=== PATIENT | female | born 1995 | race Hispanic/Latino ===

== ENCOUNTER 2019-10-03 05:59 | Observation (INO) | payer SELFPAY ==
[2019-10-03] VITALS (22 sets, daily range): BP systolic 94–125; BP diastolic 52–83
[2019-10-03] MEDS ORDERED: IOHEXOL-350 50ML VIAL IV ONE (08:49)
[2019-10-03] MEDS ORDERED: SUCCINYLCHOLINE 200MG/10ML SYR ONE (10:30)
[2019-10-03] MEDS ORDERED: PROPOFOL 10 MG/ML 20ML VIAL IV ONE (10:30)
[2019-10-03] MEDS: INDOMETHACIN 50 MG SUPP.RECT RC SCH (11:06)
[2019-10-03] MEDS ORDERED: MEPERIDINE-PF 25 MG/ML SYG ONE ×2 (11:30→12:02)
[2019-10-03] MEDS ORDERED: MORPHINE SULFATE 4 MG/1ML SYG ONE (11:40)
--- NOTE | 2019-10-03 12:00 | NUR ---
DR. PALMA TO SEE PT., IN REGARDS TO HER PAIN. ORDERS GIVEN FOR KUB, LIPASE AND CMP. Addendum: 10/03/19 at 1208 by DELON GUTIERREZ RN RN Amended: Links added.
[2019-10-03] MEDS ORDERED: ONDANSETRON HCL 4 MG/2 ML VIAL ONE (12:22)
[2019-10-03 12:52] LABS: CREATININE 0.6 mg/dL (0.5-1.5)
[2019-10-03 12:56] LABS: ALBUMIN 3.5 g/dL (3.5-5.0); BILIRUBIN,TOTAL 0.3 mg/dL (0.2-1.0); TOTAL PROTEIN, SERUM 7.3 g/dL (6.0-8.3)
== END 2019-10-03 13:40 | disposition home or self-care (01) ==
LOC: EDH 05:59 → DAH 06:00 → DAHIP 06:01 → DAH 06:01 → DAHIP 13:35
PROVIDERS: ADMIT Internal Medicine; ATTEND Internal Medicine
DX: K80.50 Calculus of bile duct without cholangitis or cholecystitis without obstruction (principal); T85.898A Other specified complication of other internal prosthetic devices, implants and grafts, initial encounter; F41.9 Anxiety disorder, unspecified; F32.9 Major depressive disorder, single episode, unspecified; D64.9 Anemia, unspecified; F43.10 Post-traumatic stress disorder, unspecified; Z90.49 Acquired absence of other specified parts of digestive tract; Z90.81 Acquired absence of spleen; X58.XXXA Exposure to other specified factors, initial encounter; Y92.89 Other specified places as the place of occurrence of the external cause
CPT/HCPCS: 36415; 43264; 43276; 74018; 74330; 80053; 81025; 83690; 99284; A4222; A4223; A4606; C1769; C1773; C2625; G0378 ×4; J0330; J2175 ×2; J2270; J2405; J2704; J7030; Q9967

== ENCOUNTER 2020-02-19 03:53 | Inpatient (IN) | payer SELFPAY ==
[~2020-02-19] VITALS: Ht 157.5 cm; Wt 72.1 kg
[2020-02-19 04:33] LABS: BASOPHILS % (AUTO) 0.6 % (0.0-5.0); EOSINOPHILS % (AUTO) 1.1 % (0.0-8.0); HEMATOCRIT 39.7 % (36-48); LYMPHOCYTES % (AUTO) 40.6 % (21.0-51.0); MEAN CORPUSCULAR HEMOGLOBIN 25.1 pg (27.0-33.0); MEAN CORPUSCULAR HGB CONC 32.2 g/dL (32.0-36.0); MONOCYTES % (AUTO) 9.2 % (3.0-13.0); NEUTROPHILS % (AUTO) 48.2 % (40.0-77.0); PLATELET COUNT (AUTO) 374 K/uL (130-400); RED BLOOD CELL COUNT(AUTO) 5.09 MIL/uL (4.00-5.50); RED CELL DISTRIBUTION WIDTH 13.4 % (11.0-15.5)
[2020-02-19 04:34] LABS: BILIRUBIN,URINE Negative (NEGATIVE); COLOR,URINE Yellow (YELLOW); GLUCOSE, URINE (UA) Negative (NEGATIVE); KETONES,URINE 40 mg/dL (NEGATIVE); LEUKOCYTE ESTERASE ,URINE Trace (NEGATIVE); NITRATE,URINE Negative (NEGATIVE); OCCULT BLOOD,URINE Negative (NEGATIVE); PROTEIN,URINE Negative (NEGATIVE)
[2020-02-19 04:36] LABS: HCG,QUAL RESULT NEGATIVE (NEGATIVE)
[2020-02-19 04:37] LABS: APPEARANCE,URINE SLIGHTLY CLOUDY (CLEAR)
[2020-02-19 04:46] LABS: BACTERIA,URINE Few /HPF (None Seen); RBC,URINE None Seen /HPF (0-1); WBC,URINE 0-1 /HPF (0-1)
[2020-02-19 04:47] LABS: MUCUS,URINE Rare LPF (None Seen)
[2020-02-19] MEDS ORDERED: KETOROLAC TROMETHAMINE 30MG/ML ONE (04:49)
[2020-02-19 05:00] LABS: INR 0.99 (0.85-1.15); PARTIAL THROMBOPLASTIN TIME 31.5 SEC (26.3-35.5); PROTHROMBIN TIME 10.7 SEC (9.6-11.6)
[2020-02-19 05:27] LABS: CREATININE 0.6 mg/dL (0.5-1.5); POTASSIUM 3.1 mmol/L (3.5-5.1)
[2020-02-19 05:36] LABS: ALBUMIN 4.2 g/dL (3.5-5.0); BILIRUBIN,TOTAL 0.3 mg/dL (0.2-1.0); TOTAL PROTEIN, SERUM 8.4 g/dL (6.0-8.3)
[2020-02-19] MEDS ORDERED: POTASSIUM CHLORIDE 20 MEQ ERTAB PO ONE ×2 (05:53)
[2020-02-19] MEDS ORDERED: ZOSYN 3.375GM+NS 50ML 50 ML IV ONE (05:54)
[2020-02-19] MEDS ORDERED: POTASSIUM CHLORIDE 10MEQ/100ML 100 ML IV PRN (07:45)
[2020-02-19] MEDS ORDERED: LIDOCAINE HCL-MPF 1% 2ML VIAL IV PRN (07:45)
[2020-02-19] MEDS ORDERED: ONDANSETRON HCL 4 MG/2 ML VIAL IVP PRN (07:45)
[2020-02-19] MEDS ORDERED: MORPHINE SULFATE 2 MG/ML 1ML SYG ONE (08:27)
[2020-02-19 09:00] VITALS: BP 115/71
[2020-02-19] MEDS: SODIUM CHLORIDE 0.9% 1000ML 1,000 ML IV SCH ×2 (10:56→21:14)
[2020-02-19 11:03] VITALS: BP 116/70
[2020-02-19] MEDS: KETOROLAC TROMETHAMINE 15MG/ML IV PRN ×2 (11:47→21:06)
[2020-02-19] MEDS: ZOSYN 3.375GM+NS 50ML 50 ML IV SCH ×2 (13:54→21:06)
[2020-02-19 15:29] VITALS: BP 119/56
[2020-02-19 19:00] VITALS: BP 116/79
[2020-02-19 23:00] VITALS: BP 127/63
[2020-02-19] MEDS: MORPHINE SULFATE 2 MG/ML 1ML SYG IVP PRN (23:31)
[2020-02-20] VITALS (20 sets, daily range): BP systolic 110–142; BP diastolic 51–89
[2020-02-20] MEDS: ZOSYN 3.375GM+NS 50ML 50 ML IV SCH ×3 (05:48→20:36)
[2020-02-20] MEDS: SODIUM CHLORIDE 0.9% 1000ML 1,000 ML IV SCH ×2 (05:48→14:48)
[2020-02-20] MEDS: KETOROLAC TROMETHAMINE 15MG/ML IV PRN (05:55)
[2020-02-20] MEDS ORDERED: IOHEXOL-350 50ML VIAL IV ONE (06:59)
[2020-02-20] MEDS: INDOMETHACIN 50 MG SUPP.RECT RC SCH ×2 (11:15→13:25)
[2020-02-20] MEDS ORDERED: NEOSTIGMINE 5MG/5ML SYR IV ONE (12:12)
[2020-02-20] MEDS ORDERED: PROPOFOL 10 MG/ML 20ML VIAL IV ONE (12:12)
[2020-02-20] MEDS ORDERED: ROCURONIUM 10MG/1ML SYR 10 MG/ML ML ONE (12:12)
[2020-02-20] MEDS ORDERED: GLYCOPYRROLATE 1 MG/5 ML SYRINGE ONE (12:12)
[2020-02-20] MEDS ORDERED: FENTANYL CITRATE PF 50 MCG/1 ML 2ML VIAL ONE (12:29)
--- NOTE | 2020-02-20 12:56 | NUR ---
GARIMA NOTE/IA MET WITH PATIENT IN ROOM. PER PATIENT, IS INDEPENDENT WITH ADLS, LIVES WITH GRANDMOTHER AND UNCLE, NO COMMUNITY SERVICES IN USE, NO DME IN USE AND FEELS SAFE TO RETURN HOME. Addendum: 02/20/20 at 1257 by CORINA GEORGES RN CM Amended: Links added.
[2020-02-20] MEDS ORDERED: IPRATROPIUM/ALBUTEROL SULFATE 3 ML SOLUTION IH ONE (13:38)
[2020-02-20] MEDS ORDERED: MEPERIDINE-PF 25 MG/ML SYG ONE (13:48)
[2020-02-20] MEDS: MORPHINE SULFATE 2 MG/ML 1ML SYG IVP PRN ×2 (17:41→22:16)
[2020-02-21 00:24] VITALS: BP 111/59
[2020-02-21] MEDS: MORPHINE SULFATE 2 MG/ML 1ML SYG IVP PRN (03:20)
[2020-02-21] MEDS: ZOSYN 3.375GM+NS 50ML 50 ML IV SCH ×2 (03:20→12:06)
[2020-02-21] MEDS: SODIUM CHLORIDE 0.9% 1000ML 1,000 ML IV SCH (03:21)
[2020-02-21 04:28] VITALS: BP 126/71
[2020-02-21 05:53] LABS: BASOPHILS % (AUTO) 0.5 % (0.0-5.0); EOSINOPHILS % (AUTO) 0.8 % (0.0-8.0); HEMATOCRIT 38.1 % (36-48); LYMPHOCYTES % (AUTO) 25.7 % (21.0-51.0); MEAN CORPUSCULAR HEMOGLOBIN 25.7 pg (27.0-33.0); MEAN CORPUSCULAR HGB CONC 31.8 g/dL (32.0-36.0); MEAN CORPUSCULAR VOLUME 80.9 fL (79-99); MONOCYTES % (AUTO) 9.4 % (3.0-13.0); NEUTROPHILS % (AUTO) 63.2 % (40.0-77.0); PLATELET COUNT (AUTO) 385 K/uL (130-400); RED BLOOD CELL COUNT(AUTO) 4.71 MIL/uL (4.00-5.50); WHITE BLOOD COUNT (AUTO) 15.9 K/uL (4.8-10.8)
[2020-02-21 06:33] LABS: ALBUMIN 3.7 g/dL (3.5-5.0); BILIRUBIN,TOTAL 0.4 mg/dL (0.2-1.0); CREATININE 0.6 mg/dL (0.5-1.5); TOTAL PROTEIN, SERUM 7.6 g/dL (6.0-8.3)
[2020-02-21 07:30] VITALS: BP 114/61
[2020-02-21 11:00] VITALS: BP 125/67
[2020-02-21] MEDS ORDERED: AMOX-426 PO (12:34)
--- NOTE | 2020-02-21 16:10 | NUR ---
PATIENT DISCHARGE PATIENT DISCHARGED, IV DISCONTINUED, BLEEDING CONTROLLED, CATHLON INTACT, PATIENT TOLERATED WITHOUT INCIDENT. DISCUSSED WITH PATIENT THE NEED TO CALL ON SUNDAY TO SCHEDULE FOLLOW UP APPOINTMENT WITH DR. PALMA. ALSO, NEED TO SEE IF HER OFFICE WANTED THE CBC COLLECTED AND RESULTED PRIOR TO HER APPOINTMENT OR IF PATIENT CAN HAVE BLOOD DRAWN AT THE APPOINTMENT. PATIENT INDICATED SHE UNDERSTOOD. ALSO, PRESCRIPTION WAS SENT ELECTRONICALLY TO THE [facility] IN [place].
== END 2020-02-21 16:20 | disposition home or self-care (01) | DRG 446 ==
LOC: EDH 03:53 → EDHIP 03:54 → OBSVTOIN 03:54 → 3DH 08:57
PROVIDERS: ADMIT Internal Medicine; ATTEND Internal Medicine
PROC: 0T903ZZ Drainage of Right Kidney, Percutaneous Approach (ICD-10-PCS; principal; 2020-02-20)
DX: K80.50 Calculus of bile duct without cholangitis or cholecystitis without obstruction (principal); E87.6 Hypokalemia; F43.10 Post-traumatic stress disorder, unspecified; F06.4 Anxiety disorder due to known physiological condition; F32.9 Major depressive disorder, single episode, unspecified; Z90.49 Acquired absence of other specified parts of digestive tract; Z90.81 Acquired absence of spleen; Z85.828 Personal history of other malignant neoplasm of skin; Z85.3 Personal history of malignant neoplasm of breast
CPT/HCPCS: 36415; 43249; 43262; 43273; 43275; 74330; 80053; 81001; 81025; 83690; 84132; 85025; 85610; 85730; 94640; A4606; C1769; C1773; G0378; G9654; J1885; J2175; J2405; J2543; J2704; J2710; J3010; J3490; J7030; Q9967

== ENCOUNTER → 2021-05-10 | Outpatient (CLI) | payer OTHER ==
[~2021-05-10] MED LIST: AMOX-426 PO
== END | disposition home or self-care (01) ==
LOC: RAH 10:08
PROVIDERS: ATTEND Family Medicine
DX: C76.1 Malignant neoplasm of thorax (principal); D49.89 Neoplasm of unspecified behavior of other specified sites
CPT/HCPCS: 71046